=== PATIENT | female | born 1940 | race Caucasian/White ===

== ENCOUNTER 2021-07-22 16:23 | Emergency (ER) | payer SELFPAY ==
[~2021-07-22] VITALS: Ht 144.8 cm; Wt 58.6 kg
[2021-07-22 16:32] VITALS: BP 194/158
--- NOTE | 2021-07-22 16:45 | NUR ---
[place]: RIGHT 20/50, LEFT 20/200, BOTH EYES 20/70
--- NOTE | 2021-07-22 16:45 | NUR ---
PT W/C ASSISTED TO BED 8.
--- NOTE | 2021-07-22 16:49 | NUR ---
X-RAY AT BEDSIDE.
--- NOTE | 2021-07-22 16:52 | NUR ---
LAB AT BEDSIDE.
--- NOTE | 2021-07-22 16:54 | NUR ---
EKG AT BEDSIDE.
[2021-07-22 17:03] LABS: BASOPHILS % (AUTO) 0.4 % (0.0-2.0); EOSINOPHILS # (AUTO) 0.1 K/uL (0-0.4); EOSINOPHILS % (AUTO) 1.7 % (0.0-4.0); HEMATOCRIT 36.4 % (36-48); HEMOGLOBIN 12.1 g/dL (12.0-16.0); LYMPHOCYTES # (AUTO) 2.5 K/uL (2.5-16.5); LYMPHOCYTES % (AUTO) 43.4 % (20.5-51.1); MEAN CORPUSCULAR HEMOGLOBIN 29 pg (27-31); MEAN CORPUSCULAR HGB CONC 33 g/dL (33-37); MEAN CORPUSCULAR VOLUME 86.6 fL (80-94); MONOCYTES # (AUTO) 0.7 K/uL (0.8-1.0); MONOCYTES % (AUTO) 11.4 % (1.7-9.3); NEUTROPHILS # (AUTO) 2.5 K/uL (1.8-7.7); NEUTROPHILS % (AUTO) 43.1 % (42.2-75.2); PLATELET COUNT (AUTO) 214 K/uL (140-450); RED BLOOD CELL COUNT(AUTO) 4.21 MIL/uL (4.20-5.40); RED CELL DISTRIBUTION WIDTH 13.7 % (11.6-13.7); WHITE BLOOD COUNT (AUTO) 5.9 K/uL (4.8-10.8)
[2021-07-22 17:19] LABS: ALBUMIN 3.6 g/dL (3.4-5.0); ANION GAP 10.2 (8-16); ASPARTATE AMINOTRANSFERASE 16 U/L (15-37); CARBON DIOXIDE 27.5 mmol/L (21-32); CHLORIDE 106 mmol/L (98-107); CREATININE 0.9 mg/dL (0.6-1.3); GLUCOSE 110 mg/dL (74-106); POTASSIUM 3.7 mmol/L (3.5-5.1); SODIUM SERUM 140 mmol/L (136-145); TOTAL BILIRUBIN 0.2 mg/dL (0.0-1.0); UREA NITROGEN, BLOOD 21 mg/dL (7-18)
--- NOTE | 2021-07-22 17:30 | NUR ---
80Y/O F C/O DIZZINESS, BLURRED VISION, UPPER AND BACK PAIN FOR 15 DASY. NKA PMH: HTN, AMBELICAL HERNIA
[2021-07-22] MEDS ORDERED: [UNRECOGNIZED DRUG - OTHER] PO (17:33)
[2021-07-22] MEDS ORDERED: [UNRECOGNIZED DRUG - OTHER] PO (17:33)
[2021-07-22 17:44] LABS: FREE T4 (FREE THYROXINE) 0.71 ng/dL (0.76-1.46)
--- NOTE | 2021-07-22 18:31 | NUR ---
URINE WALKED TO THE LAB.
--- NOTE | 2021-07-22 18:45 | NUR ---
BP 190/65, DR CRUZ NOTIFIED.
[2021-07-22 18:49] LABS: APPEARANCE,URINE CLEAR (CLEAR); BILIRUBIN,URINE NEGATIVE (NEGATIVE); BLOOD, URINE NEGATIVE (NEGATIVE); LEUKOCYTE ESTERASE ,URINE TRACE (NEGATIVE); NITRITE, URINE NEGATIVE (NEGATIVE); UGLUCOSE NEGATIVE (NEGATIVE)
--- NOTE | 2021-07-22 19:13 | NUR ---
GAVE REPORT TO JANETH RAMIREZ.
[2021-07-22 19:18] LABS: COLOR,URINE STRAW (YELLOW); RBC,URINE NONE SEEN /HPF (0-5); WBC,URINE 0-5 /HPF (0-5)
[2021-07-22] MEDS ORDERED: NITR100C7 PO (19:31)
--- NOTE | 2021-07-22 19:55 | NUR ---
PER ERMD PT OK FOR DISCHARGE W BP OF 171/60.
[2021-07-22 19:56] VITALS: BP 171/60
== END 2021-07-22 19:56 | disposition home or self-care (01) ==
LOC: MED 16:23
DX: N39.0 Urinary tract infection, site not specified (principal); R42 Dizziness and giddiness; I10 Essential (primary) hypertension
CPT/HCPCS: 36415; 71045; 80053; 81001; 83690; 83880; 84439; 84443; 84484; 85025; 93005; 99285

== ENCOUNTER 2022-03-01 14:01 | Inpatient (IN) | payer MEDICAID ==
[~2022-03-01] VITALS: Ht 143.5 cm; Wt 60.3 kg
[~2022-03-01 14:01] MED LIST: NITR100C7 PO; [UNRECOGNIZED DRUG - OTHER] PO; [UNRECOGNIZED DRUG - OTHER] PO
[2022-03-01 14:17] VITALS: BP 161/76
--- NOTE | 2022-03-01 14:24 | NUR ---
MADELIN. HANDED ON URINE CUP.
[2022-03-01] MEDS ORDERED: ALUMINUM HYD/MAG/SIMETHICONE 30 ML, DICYCLOMINE HCL LIQUID 20 MG, LIDOCAINE VISCOUS 2% ... PO ONE ×3 (15:40)
[2022-03-01] MEDS ORDERED: ONDANSETRON 4 MG/2 ML VIAL IVP ONE (15:40)
[2022-03-01] MEDS ORDERED: NACL 0.9% 1,000 ML IV SCH (15:40)
--- NOTE | 2022-03-01 15:54 | NUR ---
PT TAKEN TO CT.
[2022-03-01] MEDS ORDERED: DICYCLOMINE HCL LIQUID 10 MG/5 ML UDC ONE (16:14)
[2022-03-01] MEDS ORDERED: ALUMINUM HYD/MAG/SIMETHICONE 30 ML UDC ONE (16:14)
--- NOTE | 2022-03-01 16:30 | NUR ---
FIRST CONTACT WITH PT IN ED BED [facility] AT BEDSIDE. PT PRESENTS TO ED FOR EVAL OF EPIGASTRIC PAIN X4 DAYS WITH N/V AND BLACK STOOLS; PT STS LAST EPISODE OF N/V AND BLACK STOOL WAS YESTERDAY; PT CURRENTLY DENIES PAIN AT THIS TIME. PT REPORTS HX OF HERNIA AND HTN. PT AAOX4, GCS 15, RESP E/U, APPEARS IN NO DISTRESS. 20G IV PLACED TO R AC, MEDICATED ORDERED. PENDING RESULTS. WILL CONTINUE TO MONITOR.
[2022-03-01 16:47] LABS: BASOPHILS % (AUTO) 0.4 % (0.0-2.0); EOSINOPHILS # (AUTO) 0.1 K/uL (0-0.4); EOSINOPHILS % (AUTO) 0.9 % (0.0-4.0); HEMATOCRIT 36.9 % (36-48); HEMOGLOBIN 12.2 g/dL (12.0-16.0); LYMPHOCYTES # (AUTO) 2.2 K/uL (2.5-16.5); LYMPHOCYTES % (AUTO) 23.3 % (20.5-51.1); MEAN CORPUSCULAR HEMOGLOBIN 29 pg (27-31); MEAN CORPUSCULAR HGB CONC 33 g/dL (33-37); MEAN CORPUSCULAR VOLUME 87.8 fL (80-94); MONOCYTES # (AUTO) 0.9 K/uL (0.8-1.0); MONOCYTES % (AUTO) 9.8 % (1.7-9.3); NEUTROPHILS # (AUTO) 6.1 K/uL (1.8-7.7); NEUTROPHILS % (AUTO) 65.6 % (42.2-75.2); PLATELET COUNT (AUTO) 236 K/uL (140-450); RED CELL DISTRIBUTION WIDTH 13.4 % (11.6-13.7); WHITE BLOOD COUNT (AUTO) 9.2 K/uL (4.8-10.8)
[2022-03-01 17:16] LABS: PROTHROMBIN TIME 10.7 secs (10.8-13.4)
[2022-03-01 17:49] LABS: BILIRUBIN,URINE NEGATIVE (NEGATIVE); BLOOD, URINE NEGATIVE (NEGATIVE); COLOR,URINE YELLOW (YELLOW); LEUKOCYTE ESTERASE ,URINE TRACE (NEGATIVE); NITRITE, URINE NEGATIVE (NEGATIVE); UGLUCOSE NEGATIVE (NEGATIVE)
[2022-03-01] MEDS ORDERED: metroNIDAZOLE 500 MG/NS PREMIX 100 ML IV ONE (17:50)
--- NOTE | 2022-03-01 17:56 | NUR ---
PT RESTING IN GURNEY. RESP E/U, IN NO DISTRESS. AMBULATORY TO RESTROOM WITH CANE INDEPENDENTLY. PT WITH NO COMPLAINTS AT THIS TIME, DENIES PAIN. AWAITING RESULTS.
[2022-03-01 17:58] LABS: ALBUMIN 3.7 g/dL (3.4-5.0); AMYLASE 34 U/L (25-115); ANION GAP 15.7 (8-16); ASPARTATE AMINOTRANSFERASE 21 U/L (15-37); CHLORIDE 108 mmol/L (98-107); CREATININE 0.8 mg/dL (0.6-1.3); GLUCOSE 101 mg/dL (74-106); LIPASE 86 U/L (73-393); POTASSIUM 3.7 mmol/L (3.5-5.1); SODIUM SERUM 142 mmol/L (136-145); TOTAL BILIRUBIN 0.4 mg/dL (0.0-1.0); UREA NITROGEN, BLOOD 12 mg/dL (7-18)
[2022-03-01 17:58] LABS: APPEARANCE,URINE HAZY (CLEAR)
[2022-03-01 18:07] LABS: RBC,URINE NONE SEEN /HPF (0-5); WBC,URINE 20-60 /HPF (0-5)
[2022-03-01] MEDS ORDERED: cefTRIAXone 1,000 MG VIAL ONE (18:10)
--- NOTE | 2022-03-01 18:14 | NUR ---
HEAVENLY SENT TO LAB
[2022-03-01] MEDS ORDERED: DOCUSATE SODIUM 100 MG GELCAP PO PRN (18:35)
[2022-03-01] MEDS ORDERED: HYDROcodone/APAP 7.5/325 MG 1 TAB PO PRN (18:35)
[2022-03-01] MEDS ORDERED: POTASSIUM CHLORIDE 10 MEQ TABER PO PRN (18:35)
[2022-03-01] MEDS ORDERED: ZOLPIDEM 5 MG TAB PO PRN (18:35)
[2022-03-01] MEDS ORDERED: guaiFENesin DM 200/20 MG-10 ML 10 ML UDC PO PRN (18:35)
[2022-03-01] MEDS ORDERED: ONDANSETRON 4 MG/2 ML VIAL IM/IVP PRN (18:35)
[2022-03-01] MEDS ORDERED: ACETAMINOPHEN 325 MG TAB PO PRN (18:35)
[2022-03-01 19:06] LABS: MAGNESIUM 1.6 mg/dL (1.8-2.4); PHOSPHORUS 2.9 mg/dL (2.5-4.9)
[2022-03-01] MEDS: NACL 0.9% 1,000 ML IV SCH (19:07)
--- NOTE | 2022-03-01 19:19 | NUR ---
recieved transfer of care report from domingo hutchinson at this time
[2022-03-01] MEDS: PANTOPRAZOLE 40 MG INJ VIAL IVP SCH (21:20)
[2022-03-02 07:04] LABS: BASOPHILS % (AUTO) 0.4 % (0.0-2.0); EOSINOPHILS # (AUTO) 0.1 K/uL (0-0.4); EOSINOPHILS % (AUTO) 1.8 % (0.0-4.0); HEMATOCRIT 34.1 % (36-48); HEMOGLOBIN 11.2 g/dL (12.0-16.0); LYMPHOCYTES # (AUTO) 1.6 K/uL (2.5-16.5); MEAN CORPUSCULAR HEMOGLOBIN 29 pg (27-31); MEAN CORPUSCULAR HGB CONC 33 g/dL (33-37); MEAN CORPUSCULAR VOLUME 87.7 fL (80-94); MONOCYTES # (AUTO) 0.9 K/uL (0.8-1.0); MONOCYTES % (AUTO) 10.5 % (1.7-9.3); NEUTROPHILS # (AUTO) 5.5 K/uL (1.8-7.7); NEUTROPHILS % (AUTO) 67.3 % (42.2-75.2); PLATELET COUNT (AUTO) 212 K/uL (140-450); RED BLOOD CELL COUNT(AUTO) 3.88 MIL/uL (4.20-5.40); RED CELL DISTRIBUTION WIDTH 13.5 % (11.6-13.7); WHITE BLOOD COUNT (AUTO) 8.1 K/uL (4.8-10.8)
[2022-03-02 07:15] LABS: ANION GAP 12.7 (8-16); CARBON DIOXIDE 23.9 mmol/L (21-32); CHLORIDE 110 mmol/L (98-107); CREATININE 0.7 mg/dL (0.6-1.3); GLUCOSE 101 mg/dL (74-106); POTASSIUM 3.6 mmol/L (3.5-5.1); SODIUM SERUM 143 mmol/L (136-145); UREA NITROGEN, BLOOD 8 mg/dL (7-18)
--- NOTE | 2022-03-02 07:17 | NUR ---
GAVE TRANSFER OF CARE REPORT TO JAMES ENGLAND
--- NOTE | 2022-03-02 08:05 | NUR ---
pt ambulated with even steady gait to bathroom at this time
--- NOTE | 2022-03-02 08:25 | NUR ---
Patient will be admitted to care of Elías MAYER. Admitted to Telemetry. Will go to room 126B. Belongings list completed. Report to Drea RAMIREZ.
[2022-03-02 08:30] VITALS: BP 164/66
--- NOTE | 2022-03-02 08:30 | NUR ---
RECEIVED PT FROM ER VIA PAPITO. BEDSIDE REPORT GIVEN BY TOMÁS. PT AWAKE, ALERT, ABLE TO MAKE NEEDS KNOWN IN [place]. BREATHING SYMMETRICAL ON ROOM AIR. NO C/O PAIN AT THIS TIME. RAC 20G WITH NS AT 60CC/HR. MRSA SWAB DONE. CALL LIGHT WITHIN REACH. ALL SAFETY MEASURES IN PLACE.
--- NOTE | 2022-03-02 08:33 | NUR ---
Pt report given to Drea RAMIREZ. Transfer of care at this time.
[2022-03-02] MEDS ORDERED: hydrALAZINE 20 MG/ML VIAL IVP PRN (09:20)
[2022-03-02] MEDS: PANTOPRAZOLE 40 MG INJ VIAL IVP SCH ×2 (09:24→20:45)
[2022-03-02] MEDS: lisinopriL 20 MG TAB PO SCH (09:24)
[2022-03-02] MEDS: KETOROLAC 15 MG/ML VIAL IVP SCH ×3 (09:24→20:46)
[2022-03-02] MEDS: NACL 0.9% 1,000 ML IV SCH (09:33)
[2022-03-02] MEDS: LEVOFLOXACIN 500 MG/D5W PREMIX 100 ML IV SCH (09:33)
[2022-03-02] MEDS ORDERED: fentaNYL citrate 0.05 MG/ML VIAL ONE (09:55)
[2022-03-02] MEDS ORDERED: MIDAZOLAM 5 MG/5 ML VIAL ONE (09:56)
[2022-03-02] MEDS ORDERED: MAG SULF 2000 MG/WATER PREMIX 50 ML IV SCH (11:00)
[2022-03-02 12:00] VITALS: BP 144/51
--- NOTE | 2022-03-02 13:10 | NUR ---
PATIENT HAS BEEN SCREENED AND CATEGORIZED HIGH NUTRITION RISK. PATIENT WILL BE SEEN WITHIN 1-2 DAYS OF ADMISSION. / KAVITA [address]
--- NOTE | 2022-03-02 13:12 | NUR ---
PT AWAKE IN BED. BREATHING SYMMETRICAL. DENIES PAIN. FAMILY AT BEDSIDE VISITING
[2022-03-02 16:00] VITALS: BP 147/56
--- NOTE | 2022-03-02 16:18 | NUR ---
URINE SPECIMEN COLLECTED
--- NOTE | 2022-03-02 19:28 | NUR ---
ENDORSED PT TO CERTIFIED MEDICAL TECHNICIAN NURSE FOR CONTINUITY OF CARE
--- NOTE | 2022-03-02 19:37 | NUR ---
GET THE REPORT FROM MORNING NURSE JOBY MORAES ,PATIENT IS SITTING ON BED WITH FAMILY ON BED SIDE, PATIENT IS ALERT ORIENTED X4, PATIENT IS [place] SPEAKING, CALL LIGHT IS WITHIN THE REACH, WILL CONTINUE TO MONITOR PATIENT.
[2022-03-02 20:00] VITALS: BP 145/62
--- NOTE | 2022-03-02 20:46 | NUR ---
PATIENT IS LYING ON BED, NO ANY COMPLAIN OF PAIN OR SHORTNESS OF BREATH AT THIS TIME,VITAL SIGN IS WITHIN THE NORMAL RANGE, ALL SCHEDULE MEDICATION IS GIVEN PER DOCTOR ORDER, CALL LIGHT IS WITHIN THE REACH, WILL CONTINUE TO MONITOR PATIENT.
[2022-03-03] VITALS: BP 143/56
--- NOTE | 2022-03-03 00:47 | NUR ---
PATIENT IS LYING ON BED, NO ANY COMPLAIN OF PAIN OR SHORTNESS OF BREATH AT THIS TIME,VITAL SIGN IS WITHIN THE NORMAL RANGE, CALL LIGHT IS WITHIN THE REACH, WILL CONTINUE TO MONITOR PATIENT.
[2022-03-03] MEDS: NACL 0.9% 1,000 ML IV SCH (03:21)
[2022-03-03 04:00] VITALS: BP 157/69
--- NOTE | 2022-03-03 06:09 | NUR ---
PATIENT IS LYING ON BED, ALL SCHEDULE MEDICATION IS GIVEN PER DOCTOR ORDER, CALL LIGHT IS WITHIN THE REACH, WILL CONTINUE TO MONITOR PATIENT.
[2022-03-03 06:17] LABS: ANION GAP 11.1 (8-16); CARBON DIOXIDE 24.6 mmol/L (21-32); CHLORIDE 111 mmol/L (98-107); CREATININE 0.8 mg/dL (0.6-1.3); GLUCOSE 88 mg/dL (74-106); POTASSIUM 3.7 mmol/L (3.5-5.1); SODIUM SERUM 143 mmol/L (136-145); UREA NITROGEN, BLOOD 9 mg/dL (7-18)
[2022-03-03 06:52] LABS: BASOPHILS % (AUTO) 0.6 % (0.0-2.0); EOSINOPHILS # (AUTO) 0.2 K/uL (0-0.4); EOSINOPHILS % (AUTO) 1.9 % (0.0-4.0); HEMATOCRIT 33.2 % (36-48); LYMPHOCYTES # (AUTO) 1.9 K/uL (2.5-16.5); LYMPHOCYTES % (AUTO) 20.8 % (20.5-51.1); MEAN CORPUSCULAR HEMOGLOBIN 29 pg (27-31); MEAN CORPUSCULAR HGB CONC 33 g/dL (33-37); MEAN CORPUSCULAR VOLUME 88.7 fL (80-94); MONOCYTES % (AUTO) 11.7 % (1.7-9.3); NEUTROPHILS # (AUTO) 5.9 K/uL (1.8-7.7); PLATELET COUNT (AUTO) 193 K/uL (140-450); RED BLOOD CELL COUNT(AUTO) 3.75 MIL/uL (4.20-5.40); RED CELL DISTRIBUTION WIDTH 13.2 % (11.6-13.7)
--- NOTE | 2022-03-03 07:20 | NUR ---
GAVE THE REPORT TO MORNING NURSE MAGY FOR CONTINUOS OF CARE, PATIENT IS STABLE.
--- NOTE | 2022-03-03 07:20 | NUR ---
RECEIVED REPORT FROM NIGHTSHIFT NURSE ELZA FOR CONTINUITY OF CARE. PT IS ASLEEP, EASILY AROUSED. A/OX4, BREATHING EVEN, REGULAR AND UNLABORED ON ROOM AIR. PT IS CONTINENT OF THE BOWELS AND BLADDER. ABDOMEN WAS SOFT AND NONTENDER. IV WAS LEAKING, NEW 20G INSERTED IN LEFT AC. PT DENIES ANY PAIN AT THIS TIME.
[2022-03-03 08:00] VITALS: BP 162/60
[2022-03-03 09:01] LABS: BARBITURATE, URINE NEGATIVE ng/ml (NEG <=200); BENZODIAZEPINE, URINE NEGATIVE ng/mL (NEG <=200); CANNABINOID, URINE NEGATIVE ng/mL (NEG <=50); COCAINE, URINE NEGATIVE ng/mL (NEG <=300); OPIATE, URINE POSITIVE ng/mL (NEG <=2000); PHENCYCLIDINE SCREEN,URINE NEGATIVE ng/mL (NEG <=25)
[2022-03-03] MEDS ORDERED: LISI-487 PO (09:18)
[2022-03-03] MEDS ORDERED: PSYL0.4C2 PO (09:18)
[2022-03-03] MEDS ORDERED: PANT20EC PO (09:18)
[2022-03-03] MEDS ORDERED: LEVO750T51 PO (09:18)
[2022-03-03] MEDS: lisinopriL 20 MG TAB PO SCH (09:23)
[2022-03-03] MEDS: PANTOPRAZOLE 40 MG INJ VIAL IVP SCH (09:23)
[2022-03-03] MEDS: LEVOFLOXACIN 500 MG/D5W PREMIX 100 ML IV SCH (09:24)
--- NOTE | 2022-03-03 10:00 | NUR ---
PT IN STABLE CONDITION. FAMILY AT THE BEDSIDE.
[2022-03-03 12:33] VITALS: BP 168/65
--- NOTE | 2022-03-03 13:55 | NUR ---
PT WAS ABLE TO VERBALIZE UNDERSTANDING AND SIGN ALL DISCHARGE PAPERS. COPY OF RENAL ULTRASOUND GIVEN, PT WAS ABLE TO AMBULATE TO FRONT LOBBY. TRANSPORTED HOME VIA POV WITH SON.
== END 2022-03-03 13:55 | disposition home or self-care (01) | DRG 463 ==
LOC: MED 14:01 → MTU 18:36 → MMU 03-02 04:47
PROVIDERS: ADMIT Student in an Organized Health Care Education/Training Program; ATTEND Student in an Organized Health Care Education/Training Program
DX: N39.0 Urinary tract infection, site not specified (principal); K57.92 Diverticulitis of intestine, part unspecified, without perforation or abscess without bleeding; E87.8 Other disorders of electrolyte and fluid balance, not elsewhere classified; D64.9 Anemia, unspecified; E86.0 Dehydration; E83.52 Hypercalcemia; I10 Essential (primary) hypertension; N28.1 Cyst of kidney, acquired; E83.42 Hypomagnesemia; Z20.822 Contact with and (suspected) exposure to COVID-19; Z79.899 Other long term (current) drug therapy
CPT/HCPCS: 36415; 76770; 80048; 80053; 80305; 81001; 82150; 83605; 83690; 83735; 83880; 84100; 84484; 85025; 85610; 85730; 86886; 86900; 86901; 87040; 87081; 87086; 93005; 96361; 96365; 96367; 96375; 99285; C9113; J0696; J1885; J1956; J2250; J2405; J3010; J3475; J3490; J7030; Q0092